=== PATIENT | female | born 1980 | race Caucasian/White ===

== ENCOUNTER 2018-03-02 16:39 | Emergency (ER) | payer MEDICAID ==
--- NOTE | 2018-03-02 18:50 | EDM.PDOC ---
ED HPI GENERAL MEDICAL PROBLEM - General Chief Complaint: Genitourinary Problem Stated Complaint: ABDOMINAL PAIN Time Seen by Provider: 03/02/18 17:00 Source of Information: Reports: Patient, Family History Limitations: Reports: No Limitations - History of Present Illness INITIAL COMMENTS - FREE TEXT/NARRATIVE: 38 y.o.w.f -smoker- G4 P 3 AB0, came to the ED with her SO due to pelvic cramps and vaginal spotting. She is 6 weeks . No trauma. Pt is on vitamins. No N/V/D no dizziness, no other acute medical issues. BP 112/68 RR 18 Pulse ox 100% on RA Temp 36.8 Pulse 81. Onset Date: 03/02/18 Onset Time: 08:00 Duration: Hour(s):, Intermittent Location: Reports: Pelvis Quality: Reports: Ache, Dull Improves with: Reports: Rest Worsens with: Reports: Movement Context: Reports: Other Associated Symptoms: Reports: Other (pinkish material on the paper after whiping her " " area) - Related Data Allergies Allergy/AdvReac Type Severity Reaction Status Date / Time codeine Allergy Nausea Verified 03/02/18 17:24 Home Meds: Home Meds Pnv No.95/Ferrous Fum/Folic AC [ Caplet] 1 tab PO DAILY 03/02/18 [ History] Past Medical History - Past Health History Medical/Surgical History: Denies Medical/Surgical History HEENT History: Reports: Other (See Below) Other HEENT History: ear surgery FAMILY DENTIST History: Reports: - Past Surgical History HEENT Surgical History: Reports: Oral Surgery Female Surgical History: Reports: Other (See Below) Other Female Surgeries/Procedures: ovarian cysts Social & Family History - Tobacco Use Smoking Status *Q: Current Every Day Smoker Years of Tobacco use: 10 Packs/Tins Daily: 0.8 - Caffeine Use Caffeine Use: Reports: Coffee - Recreational Drug Use Recreational Drug Use: No ED ROS GENERAL - Review of Systems Review Of Systems: See Below Constitutional: Reports: No Symptoms HEENT: Reports: No Symptoms Respiratory: Reports: No Symptoms Cardiovascular: Reports: No Symptoms Endocrine: Reports: No Symptoms GI/Abdominal: Reports: No Symptoms : Reports: Pain (suprapubic) Musculoskeletal: Reports: No Symptoms Skin: Reports: No Symptoms Neurological: Reports: No Symptoms Psychiatric: Reports: No Symptoms Hematologic/Lymphatic: Reports: No Symptoms Immunologic: Reports: No Symptoms ED EXAM - Physical Exam Exam: See Below Exam Limited By: No Limitations General Appearance: Alert, WD/WN, Mild Distress Eye Exam: Bilateral Eye: Normal Inspection Ears: Normal External Exam Nose: Normal Inspection Throat/Mouth: Normal Inspection, Normal Lips, Normal Voice, No Airway Compromise Head: Atraumatic, Normocephalic Neck: Normal Inspection, Supple, Non-Tender, Full Range of Motion Respiratory/Chest: No Respiratory Distress, Lungs Clear, Normal Breath Sounds, Chest Non-Tender Cardiovascular: Normal Peripheral Pulses, Regular Rate, Rhythm, No Edema, No Gallop, No Murmur, No Rub GI/Abdominal Exam: Normal Bowel Sounds, Soft, Tender (suprapubic) Rectal Exam: Deferred (Female) Exam: Deferred for Placenta Previa Back Exam: Normal Inspection, Full Range of Motion Extremities: Normal Inspection, Normal Range of Motion, Non-Tender, No Pedal Edema Neurological: Alert, Oriented, CN II-XII Intact, Normal Cognition, Normal Gait, No Motor/Sensory Deficits Psychiatric: Normal Affect, Normal Mood Skin Exam: Warm, Dry, Intact, Normal Color, No Rash Lymphatic: No Adenopathy Course - Vital Signs Text/Narrative:: 38 y.o.w.f -smoker- G4 P 3 AB0, came to the ED with her SO due to pelvic cramps and vaginal spotting. She is 6 weeks . No trauma. Pt is on vitamins. No N/V/D no dizziness, no other acute medical issues. BP 112/68 RR 18 Pulse ox 100% on RA Temp 36.8 Pulse 81. PE: WNWD W F with blood the papers when she wipes her area. Imaging: OB Pelvic U/S: Subchorionic hematoma, minor, 6 weeks 4 days, FHT 162 Labs: CBC showed a WBC of 17.6 K with 13,3 Neutros UA: Neg for Proteins and UTI , No blood in urine BMP: BUN/CR ratio elevated Impression: Subchorionic hemorrhage, minor. Tx: None Reexam: Pt was doing fine in th Ed, Pt was strongly advised to quit tobacco use. Plan: D/C with instructions. Last Recorded V/S: Last Vital Signs Temp 36.4 C 03/02/18 17:00 Pulse Resp 18 03/02/18 17:00 BP 108/67 03/02/18 18:45 Pulse Ox 100 03/02/18 17:00 - Orders/Labs/Meds Orders: Active Orders 24 hr Category Date Time Status OB Ltd 1 or More Fetus [US] Routine Exams 03/02/18 18:12 Taken OB Transvaginal [US] Routine Exams 03/02/18 18:12 Taken Labs: Laboratory Tests 03/02/18 03/02/18 03/02/18 Range/Units 16:56 17:25 17:25 WBC 17.6 H (4.5-12.0) X10-3/uL RBC 4.48 (3.23-5.20) x10(6)uL Hgb 13.6 (11.5-15.5) g/dL Hct 38.8 (30.0-51.3) % MCV 86.5 (80-96) fL MCH 30.4 (27.7-33.6) pg MCHC 35.1 (32.2-35.4) g/dL RDW 12.8 (11.5-15.5) % Plt Count 325 (125-369) X10(3)uL MPV 7.7 (7.4-10.4) fL Neut % (Auto) 76.2 (46-82) % Lymph % (Auto) 15.2 (13-37) % [place] % (Auto) 5.5 (4-12) % Eos % (Auto) 3 (1.0-5.0) % Baso % (Auto) 1 (0-2) % Neut # (Auto) 13.3 H (1.6-8.3) # Lymph # (Auto) 2.7 (0.6-5.0) # [place] # (Auto) 1.0 (0.0-1.3) # Eos # (Auto) 0.5 (0.0-0.8) # Baso # (Auto) 0.1 (0.0-0.2) # Sodium 135 (135-145) mmol/L Potassium 4.2 (3.5-5.3) mmol/L Chloride 101 (100-110) mmol/L Carbon Dioxide 27 (21-32) mmol/L BUN 14 (7-18) mg/dL Creatinine 0.6 (0.55-1.02) mg/dL Est Cr Clr Drug Dosing 134.16 mL/min Estimated GFR (MDRD) > 60 (>60) BUN/Creatinine Ratio 23.3 H (9-20) Glucose 86 (80-116) mg/dL Calcium 8.9 (8.6-10.2) mg/dL HCG, Quant (<5) mIU/mL Urine Color Yellow (YELLOW) Urine Appearance Clear (CLEAR) Urine pH 5.0 (5.0-6.5) Ur Specific [place] 1.025 (1.010-1.025) Urine Protein Negative (NEGATIVE) mg/dL Urine Glucose (UA) Normal (NEGATIVE) mg/dL Urine Ketones 15 H (NEGATIVE) mg/dL Urine Occult Blood Negative (NEGATIVE) Urine Nitrite Negative (NEGATIVE) Urine Bilirubin Negative (NEGATIVE) Urine Urobilinogen Normal (NEGATIVE) mg/dL Ur Leukocyte Esterase Negative (NEGATIVE) Urine RBC 0-5 (0) Urine WBC 0-5 (0) Ur Squamous Epith Cells Few H (NS,R,O) Urine Bacteria Rare H (NS) 03/02/18 Range/Units 17:25 WBC (4.5-12.0) X10-3/uL RBC (3.23-5.20) x10(6)uL Hgb (11.5-15.5) g/dL Hct (30.0-51.3) % MCV (80-96) fL MCH (27.7-33.6) pg MCHC (32.2-35.4) g/dL RDW (11.5-15.5) % Plt Count (125-369) X10(3)uL MPV (7.4-10.4) fL Neut % (Auto) (46-82) % Lymph % (Auto) (13-37) % [place] % (Auto) (4-12) % Eos % (Auto) (1.0-5.0) % Baso % (Auto) (0-2) % Neut # (Auto) (1.6-8.3) # Lymph # (Auto) (0.6-5.0) # [place] # (Auto) (0.0-1.3) # Eos # (Auto) (0.0-0.8) # Baso # (Auto) (0.0-0.2) # Sodium (135-145) mmol/L Potassium (3.5-5.3) mmol/L Chloride (100-110) mmol/L Carbon Dioxide (21-32) mmol/L BUN (7-18) mg/dL Creatinine (0.55-1.02) mg/dL Est Cr Clr Drug Dosing mL/min Estimated GFR (MDRD) (>60) BUN/Creatinine Ratio (9-20) Glucose (80-116) mg/dL Calcium (8.6-10.2) mg/dL HCG, Quant 01776 (<5) mIU/mL Urine Color (YELLOW) Urine Appearance (CLEAR) Urine pH (5.0-6.5) Ur Specific [place] (1.010-1.025) Urine Protein (NEGATIVE) mg/dL Urine Glucose (UA) (NEGATIVE) mg/dL Urine Ketones (NEGATIVE) mg/dL Urine Occult Blood (NEGATIVE) Urine Nitrite (NEGATIVE) Urine Bilirubin (NEGATIVE) Urine Urobilinogen (NEGATIVE) mg/dL Ur Leukocyte Esterase (NEGATIVE) Urine RBC (0) Urine WBC (0) Ur Squamous Epith Cells (NS,R,O) Urine Bacteria (NS) Departure - Departure Time of Disposition: 18:46 Disposition: Home, Self-Care 01 Condition: Good Clinical Impression: Subchorionic hematoma in first trimester Qualifiers: Fetus number: single or unspecified fetus Qualified Code(s): O41.8X10 - Other specified disorders of amniotic fluid and membranes, first trimester, not applicable or unspecified - Discharge Information Instructions: Subchorionic Hematoma Referrals: Da Gurrola MD [Primary Care Provider] - Forms: ED Department Discharge, ED Return to Work/School Form Additional Instructions: Pelvic rest till reevaluated by your PMD on or Sunday. Please come back if your symptoms get worse acutely. Please, to tobacco use - My Orders Last 24 Hours: My Active Orders 03/02/18 18:12 OB Ltd 1 or More Fetus [US] Routine OB Transvaginal [US] Routine - Assessment/Plan Last 24 Hours: My Active Orders 03/02/18 18:12 OB Ltd 1 or More Fetus [US] Routine OB Transvaginal [US] Routine
[2018-03-02 19:03] VITALS: BP 108/67
== END 2018-03-02 18:55 | disposition home or self-care (01) ==
LOC: FB.ED 16:39
DX: O20.8 Other hemorrhage in early pregnancy (principal); O99.331 Smoking (tobacco) complicating pregnancy, first trimester; F17.210 Nicotine dependence, cigarettes, uncomplicated; Z3A.01 Less than 8 weeks gestation of pregnancy; Z88.5 Allergy status to narcotic agent
CPT/HCPCS: 36415; 76815; 76817; 80048; 81001; 84702; 85025; 99284

== ENCOUNTER 2018-03-14 14:24 | Emergency (ER) | payer MEDICAID ==
--- NOTE | 2018-03-14 15:04 | EDM.PDOC ---
ED HPI GENERAL MEDICAL PROBLEM - General Stated Complaint: 8 WEEKS PG DISCHARGE Time Seen by Provider: 03/14/18 14:24 Source of Information: Reports: Patient, Family History Limitations: Reports: No Limitations - History of Present Illness INITIAL COMMENTS - FREE TEXT/NARRATIVE: 38 y.o.w.f 8 weeks , came to the ed because there were red markings on her papers when she whips her area. No N/V/D, no dizziness, no other acute medical issues. 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: - Past Surgical History HEENT Surgical History: Reports: Oral Surgery Female Surgical History: Reports: Other (See Below) Other Female Surgeries/Procedures: ovarian cysts Social & Family History - Caffeine Use Caffeine Use: Reports: Coffee ED ROS GENERAL - Review of Systems Review Of Systems: See Below Constitutional: Reports: No Symptoms HEENT: Reports: No Symptoms Respiratory: Reports: No Symptoms Cardiovascular: Reports: No Symptoms Endocrine: Reports: No Symptoms GI/Abdominal: Reports: No Symptoms : Reports: No Symptoms Musculoskeletal: Reports: No Symptoms Skin: Reports: No Symptoms Psychiatric: Reports: No Symptoms Hematologic/Lymphatic: Reports: No Symptoms Immunologic: Reports: No Symptoms ED EXAM - Physical Exam Exam: See Below Exam Limited By: No Limitations General Appearance: Alert, WD/WN, Obese, Other () Eye Exam: Bilateral Eye: Normal Inspection Ears: Normal External Exam Nose: Normal Inspection Throat/Mouth: Normal Inspection Head: Atraumatic, Normocephalic Neck: Normal Inspection, Supple, Non-Tender Respiratory/Chest: No Respiratory Distress, Lungs Clear, Normal Breath Sounds, No Accessory Muscle Use Cardiovascular: Normal Peripheral Pulses, Regular Rate, Rhythm, No Edema GI/Abdominal Exam: Normal Bowel Sounds, Soft, Non-Tender, No Organomegaly, No Abnormal Bruit, No Mass, Pelvis Stable Rectal Exam: Deferred (Female) Exam: Deferred for Placenta Previa Heart Tones: Present Movement: Active Back Exam: Normal Inspection Extremities: Normal Inspection, Normal Range of Motion, Non-Tender, Normal Capillary Refill Neurological: Alert, Oriented, CN II-XII Intact, Normal Cognition, Normal Gait Psychiatric: Normal Affect, Normal Mood Skin Exam: Warm, Dry, Intact, Normal Color, No Rash Lymphatic: No Adenopathy Course - Vital Signs Text/Narrative:: 38 y.o.w.f 8 weeks , came to the ed because there were red markings on her papers when she whips her area. No N/V/D, no dizziness, no other acute medical issues. BP 149/97 RR 18 Pulse ox 98% on RA RR 18 Temp 36.8 Pulse 94 PE: WNWD W F in NAD Pelvic exam deferred, please see note above Labs: UA neg imaging: OB US: 8 weesk 3 days old, with minimal subchorionic bleed, no change from las OB US Impression: 8 week s 3 days old, with minimal subchorionic bleed Tx: None in the ED Reexam: Pt was doing fine in the ed Plan: D/C with instructions Last Recorded V/S: Last Vital Signs Temp 36.5 C 03/14/18 15:05 Pulse 94 03/14/18 15:05 Resp 18 03/14/18 15:05 BP 149/107 H 03/14/18 15:05 Pulse Ox 100 03/14/18 15:05 - Orders/Labs/Meds Orders: Active Orders 24 hr Category Date Time Status OB Ltd 1 or More Fetus [US] Routine Exams 03/14/18 15:30 Taken OB Transvaginal [US] Routine Exams 03/14/18 15:45 Taken Labs: Laboratory Tests 03/14/18 Range/Units 15:00 Urine Color Yellow (YELLOW) Urine Appearance Clear (CLEAR) Urine pH 7.0 H (5.0-6.5) Ur Specific [place] 1.020 (1.010-1.025) Urine Protein Negative (NEGATIVE) mg/dL Urine Glucose (UA) Normal (NEGATIVE) mg/dL Urine Ketones Negative (NEGATIVE) mg/dL Urine Occult Blood Negative (NEGATIVE) Urine Nitrite Negative (NEGATIVE) Urine Bilirubin Negative (NEGATIVE) Urine Urobilinogen Normal (NEGATIVE) mg/dL Ur Leukocyte Esterase Negative (NEGATIVE) Urine RBC 0-5 (0) Urine WBC 0-5 (0) Ur Squamous Epith Cells Moderate H (NS,R,O) Urine Bacteria Few H (NS) Departure - Departure Time of Disposition: 16:15 Disposition: Home, Self-Care 01 Condition: Good Clinical Impression: Subchorionic bleed Qualifiers: Trimester: first trimester - Discharge Information Referrals: Da Gurrola MD [Primary Care Provider] - Forms: ED Return to Work/School Form Additional Instructions: Pelvic rest till bleed stopped entirely, please f/u with your PMD, come back if your symptoms get worse acutely - My Orders Last 24 Hours: My Active Orders 03/14/18 15:30 OB Ltd 1 or More Fetus [US] Routine 03/14/18 15:45 OB Transvaginal [US] Routine - Assessment/Plan Last 24 Hours: My Active Orders 03/14/18 15:30 OB Ltd 1 or More Fetus [US] Routine 03/14/18 15:45 OB Transvaginal [US] Routine
[2018-03-14 16:29] VITALS: BP 149/107
--- NOTE | 2018-03-15 11:29 | US ---
INDICATION: Bleeding. INDICATION FOR TRANSVAGINAL: Bleeding/unable to visualize heart motion with transabdominal probe. OB ULTRASOUND, LIMITED/TRANSVAGINAL OB ULTRASOUND: Multiple ultrasonic images were initially obtained with transabdominal probe and then switched to transvaginal probe to better visualize the fetus. A single intrauterine gestation was noted with a pole, having a crown/ rump length of 20.01 mm, compatible with 8 weeks, 5 days gestational age. This is only 3 days ahead of the LMP GA of 8 weeks, 2 days. OLIVIA by ultrasound is 10/19/18, compared with 10/22/18 for the LMP OLIVIA. A regular heart rate of 174 BPM was noted. A normal amount of amniotic fluid was seen. The yolk sac appeared grossly normal. A small implantation bleed is noted along the anterior inferior portion of the gestational sac. Findings were compared with previous examination of 03/02/18, which also showed a probable implantation bleed. This appears less prominent on the current study and only at the inferior aspect of the gestational sac. The current ultrasound is only 3 days ahead of the previous ultrasound. The right ovary was unremarkable and measured approximately 19 x 13 mm. The left ovary was not seen. No adnexal mass lesions or free fluid collections were identified. IMPRESSION: 1. Normal appearing IUP, except to note continued presence with decreased size of a smaller area of probable implantation subchorionic bleed. 2. Gestation age measurements were an average of 8 weeks, 5 days by ultrasound , compared with the previous ultrasound, which was 8 weeks, 2 days. This is compatible with normal progression. OLIVIA by ultrasound is 10/19/18. MTDD
== END 2018-03-14 16:25 | disposition home or self-care (01) ==
LOC: FB.ED 14:24
DX: O20.9 Hemorrhage in early pregnancy, unspecified (principal); O09.521 Supervision of elderly multigravida, first trimester; O99.331 Smoking (tobacco) complicating pregnancy, first trimester; F17.210 Nicotine dependence, cigarettes, uncomplicated; Z88.5 Allergy status to narcotic agent; Z3A.08 8 weeks gestation of pregnancy
CPT/HCPCS: 76815; 76817; 81001; 99284

== ENCOUNTER 2018-03-27 16:33 | Emergency (ER) | payer MEDICAID ==
[2018-03-27 16:52] VITALS: BP 130/69
--- NOTE | 2018-03-27 17:11 | EDM.PDOC ---
ED HPI GENERAL MEDICAL PROBLEM - General Stated Complaint: VAG DISCHARGE 10 WEEKS Time Seen by Provider: 03/27/18 16:33 Source of Information: Reports: Patient, Family History Limitations: Reports: No Limitations - History of Present Illness INITIAL COMMENTS - FREE TEXT/NARRATIVE: 38 y.o.w.f G4 3 P AB0, 10 weeks , came to the ed with her due to vaginal spotting after lifting a box at work today. Pt was seen at the OBGYN clinic yesterday at [place] when "everything checked out well" including pelvic exam and pelvic US. No pain , no N/V/D no dizziness. Nurse was not able to get the FHT. No other acute medical issues. BP 130/69 RR 16 Pulse ox 100% on RA Temp 36.8 Pulse 85 Onset Date: 03/27/18 Onset Time: 15:00 Duration: Hour(s): Location: Reports: Pelvis Quality: Reports: Other (vag spotting) Severity: Mild Improves with: Reports: Rest Worsens with: Reports: Other (lifting boxes) Context: Reports: Lifting Associated Symptoms: Reports: No Other Symptoms - Related Data Allergies Allergy/AdvReac Type Severity Reaction Status Date / Time codeine Allergy Mild Nausea Verified 03/27/18 16:49 Home Meds: Home Meds Pnv No.95/Ferrous Fum/Folic AC [ Caplet] 1 tab PO DAILY 03/02/18 [ History] Past Medical History - Past Health History Medical/Surgical History: Denies Medical/Surgical History HEENT History: Reports: Other (See Below) Other HEENT History: 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: - Past Surgical History HEENT Surgical History: Reports: Oral Surgery Female Surgical History: Reports: Other (See Below) Other Female Surgeries/Procedures: ovarian cysts Social & Family History - Caffeine Use Caffeine Use: Reports: Coffee ED ROS GENERAL - Review of Systems Review Of Systems: See Below Constitutional: Reports: No Symptoms HEENT: Reports: No Symptoms Respiratory: Reports: No Symptoms Cardiovascular: Reports: No Symptoms Endocrine: Reports: No Symptoms GI/Abdominal: Reports: No Symptoms : Reports: No Symptoms Musculoskeletal: Reports: No Symptoms Skin: Reports: No Symptoms Neurological: Reports: No Symptoms Psychiatric: Reports: No Symptoms Hematologic/Lymphatic: Reports: No Symptoms Immunologic: Reports: No Symptoms ED EXAM - Physical Exam Exam: See Below Exam Limited By: No Limitations General Appearance: Alert, WD/WN, No Apparent Distress Eye Exam: Bilateral Eye: Normal Inspection Ears: Normal External Exam Nose: Normal Inspection Throat/Mouth: Normal Inspection Head: Atraumatic Neck: Normal Inspection Respiratory/Chest: No Respiratory Distress Cardiovascular: Normal Peripheral Pulses, Regular Rate, Rhythm GI/Abdominal Exam: Normal Bowel Sounds, Soft, Non-Tender, No Organomegaly, Pelvis Stable Rectal Exam: Deferred (Female) Exam: Deferred for Placenta Previa Heart Tones: Not [place] Movement: Active Back Exam: Normal Inspection, Full Range of Motion Extremities: Normal Inspection, Normal Range of Motion, Non-Tender, No Pedal Edema Neurological: Alert, Oriented, CN II-XII Intact, Normal Cognition Psychiatric: Normal Affect, Normal Mood Skin Exam: Warm, Dry, Intact, Normal Color, No Rash Lymphatic: No Adenopathy Course - Vital Signs Text/Narrative:: 38 y.o.w.f G4 3 P AB0, 10 weeks , came to the ed with her due to vaginal spotting after lifting a box at work today. Pt was seen at the OBGYN clinic yesterday at [place] when "everything checked out well" including pelvic exam and pelvic US. No pain , no N/V/D no dizziness. Nurse was not able to get the FHT. No other acute medical issues. BP 130/69 RR 16 Pulse ox 100% on RA Temp 36.8 Pulse 85 PE; WNWD W F with minimal vag spotting Labs: UA: neg for UTI Impression: , Vag spotting Tx: None 5.32 pm Consultation: Dr. Girard, ASSOCIATE PROFESSOR OF MUSIC [facility]: OB US in am to check for viability. Pelvic rest not helpful for subchorionic bleed. Reexam: Pt was doing fine here in the ED Plan: D/C with instructions Pt's Wayside name: Bruce Last Recorded V/S: Last Vital Signs Temp 36.3 C 03/27/18 16:51 Pulse 84 03/27/18 16:51 Resp 16 03/27/18 16:51 BP 130/69 03/27/18 16:51 Pulse Ox 100 03/27/18 16:51 - Orders/Labs/Meds Labs: Laboratory Tests 03/27/18 Range/Units 16:47 Urine Color Yellow (YELLOW) Urine Appearance Slightly cloudy (CLEAR) Urine pH 6.0 (5.0-6.5) Ur Specific [place] 1.020 (1.010-1.025) Urine Protein Negative (NEGATIVE) mg/dL Urine Glucose (UA) Normal (NEGATIVE) mg/dL Urine Ketones 150 H (NEGATIVE) mg/dL Urine Occult Blood Negative (NEGATIVE) Urine Nitrite Negative (NEGATIVE) Urine Bilirubin Negative (NEGATIVE) Urine Urobilinogen Normal (NEGATIVE) mg/dL Ur Leukocyte Esterase Negative (NEGATIVE) Urine RBC 0-5 (0) Urine WBC 0-5 (0) Ur Squamous Epith Cells Moderate H (NS,R,O) Urine Bacteria Moderate H (NS) Urine Mucus Moderate H (NS) Departure - Departure Time of Disposition: 17:48 Disposition: Home, Self-Care 01 Condition: Good Clinical Impression: Vaginal spotting Qualifiers: Weeks of gestation: 10 weeks Qualified Code(s): Z3A.10 - 10 weeks gestation of - Discharge Information Instructions: First Trimester of , [id number], Vaginal Bleeding During , First Trimester Referrals: Da Gurrola MD [Primary Care Provider] - Forms: ED Department Discharge Additional Instructions: Please come back for an OB Pelvic US at 9.30 am to check for viability of the . Please come if your symptoms get worse acutely
== END 2018-03-27 18:00 | disposition home or self-care (01) ==
LOC: FB.ED 16:33
DX: O26.851 Spotting complicating pregnancy, first trimester (principal); Z3A.10 10 weeks gestation of pregnancy; Z88.5 Allergy status to narcotic agent
CPT/HCPCS: 81001; 99283

== ENCOUNTER 2021-05-23 09:53 | Day surgery (SDC) | payer MEDICAID ==
[2021-05-23] MEDS ORDERED: Ketorolac 30 MG/ML SDV IVPUSH ONE (09:54)
[2021-05-23] MEDS ORDERED: Ondansetron 4 MG/2 ML SDV IVPUSH ONE (09:54)
[2021-05-23] MEDS ORDERED: Neostigmine Methylsulfate 10 MG/10 ML MDV IVPUSH ONE (09:54)
[2021-05-23] MEDS ORDERED: Midazolam 1 MG/ML 2 ML SDV IV ONE (09:54)
[2021-05-23] MEDS ORDERED: fentaNYL 100 MCG/2 ML SDV IV ONE (09:54)
[2021-05-23] MEDS ORDERED: Rocuronium 100 MG/10 ML MDV IV ONE (09:54)
[2021-05-23] MEDS ORDERED: Labetalol 100 MG/20 ML MDV IV ONE (09:54)
[2021-05-23] MEDS ORDERED: Glycopyrrolate 0.2 MG/ML 5 ML MDV IV ONE (09:54)
[2021-05-23] MEDS ORDERED: Propofol 200 MG/20 ML SDV IV ONE (09:54)
[2021-05-23] MEDS ORDERED: Lactated Ringers 1,000 ML IV ONE (09:54)
[2021-05-23] MEDS ORDERED: Lactated Ringers 1,000 ML IV SCH (10:00)
[2021-05-23] MEDS ORDERED: Sodium Chloride 0.9% 10 ML Syringe FLUSH PRN (10:00)
[2021-05-23 10:58] VITALS: PULSE 82
[2021-05-23] MEDS ORDERED: Bupivacaine 0.5%/EPINEPHrine 1:200,000 10 ML SDV INJECT ONE (11:34)
[2021-05-23 13:50] VITALS: BP 138/91
== END 2021-05-23 15:00 | disposition home or self-care (01) ==
LOC: FB.SDS 09:53
PROVIDERS: ATTEND Surgery
DX: K80.10 Calculus of gallbladder with chronic cholecystitis without obstruction (principal); Z79.899 Other long term (current) drug therapy; Z98.890 Other specified postprocedural states; Z01.812 Encounter for preprocedural laboratory examination; Z20.822 Contact with and (suspected) exposure to COVID-19
CPT/HCPCS: 00790-QZ; 88304; J0690; J1885; J2250; J2405; J2704; J2710; J3010; J3490; J7120; U0002

== ENCOUNTER 2023-01-11 05:39 | Emergency (ER) | payer MEDICAID ==
[2023-01-11] MEDS ORDERED: SUMAtriptan 6 MG/0.5 ML SDV SUBCUT ONE (06:15)
[2023-01-11] MEDS ORDERED: Metoclopramide 10 MG/2 ML SDV IM ONE (06:15)
[2023-01-11] MEDS ORDERED: Promethazine 25 MG/ML SDV IM ONE (06:46)
[2023-01-11] MEDS ORDERED: diphenhydrAMINE 50 MG/ML SDV IM ONE (06:47)
[2023-01-11] MEDS ORDERED: diphenhydrAMINE 50 MG Cap PO ONE (07:10)
[2023-01-11] MEDS ORDERED: Acetaminophen 500 MG Tab PO ONE (07:10)
[2023-01-11] MEDS ORDERED: Dexamethasone 4 MG Tab PO ONE (07:11)
[2023-01-11 07:49] VITALS: BP 132/76; PULSE 64
== END 2023-01-11 07:48 | disposition home or self-care (01) ==
LOC: FB.ED 05:39
DX: G43.909 Migraine, unspecified, not intractable, without status migrainosus (principal); E66.9 Obesity, unspecified; K21.9 Gastro-esophageal reflux disease without esophagitis; F17.210 Nicotine dependence, cigarettes, uncomplicated; Z88.5 Allergy status to narcotic agent; Z90.49 Acquired absence of other specified parts of digestive tract
CPT/HCPCS: 96372; 99283; A9270; J1200; J2550; J2765; J3030; J8540